=== PATIENT | male | born 1970 | race Caucasian/White ===

== ENCOUNTER 2020-05-13 12:02 | Emergency (ER) | payer OTHER, SELFPAY ==
--- NOTE | 2020-05-13 12:19 | ED.EXTPRO ---
HPI - Extremity Problem General Chief complaint: Extremity Problem,Nontraumatic Stated complaint: gout in foot Time Seen by Provider: 05/13/20 12:25 Source: patient and RN notes reviewed Mode of arrival: ambulatory Limitations: no limitations History of Present Illness HPI Narrative: 49 old male presents with concern for red, tender left foot at the base of the first digit. Reports history of gout. He does not take any preventative gout medicines. Denies any intervention for his pain. Denies any injury, trauma to the foot. MD Complaint: joint paint Related Data Allergies Allergy/AdvReac Type Severity Reaction Status Date / Time No Known Allergies Allergy Unverified 04/15/12 10:58 Review of Systems Review of Systems: Narrative: CONSTITUTIONAL: Denies malaise, chills, sweats, or fever. CARDIOVASCULAR: Denies chest pain, palpitations, or edema. SKIN: Reports redness, warmth of the base of the first digit of left foot MUSCULOSKELETAL: Reports pain, swelling of the base of the first digit of the left foot NEUROLOGIC: Denies numbness, weakness. All systems reviewed & are unremarkable except as noted in HPI and below PMFSH Comments Reviewed Exam Narrative: Exam Narrative: GENERAL: Well-appearing, well-nourished, and in no acute distress. HEAD: Normocephalic, atraumatic. EYES: PERRLA, conjunctivae clear, and EOMI. No nystagmus. ENT: Nares clear, turbinates pink, no rhinorrhea or epistaxis. Mucous membranes moist. TM pearly keys with sharp light reflex bilaterally; no tragal tenderness. Oropharynx without erythema or lesions. Tonsils not enlarged and without exudate. NECK: Supple. No lymphadenopathy. No jugular venous distension, thyromegaly, or carotid bruits. Carotids were easily palpable bilaterally. CHEST: No respiratory distress. Clear to auscultation. No bony deformities, no asymmetry. Speaks in full sentences. HEART: Regular rate and rhythm. No murmur heard. Normal peripheral pulses. ABDOMEN: Soft, nontender, nondistended, normal active bowel sounds, no palpable masses. EXTREMITIES: Normal range of motion. No edema. Normal strength and sensation. SKIN: Warm, dry, no rash. NEURO: Alert and oriented x3. No focal deficits. Cranial nerves II through XII grossly intact PSYCH: Normal mood and affect Course Course Emergency Course: Patient is aware of diagnosis, understands and agrees to treatment plan. Anticipatory guidance given. Patient agrees to follow-up as directed and is aware of reasons to seek care at the emergency department. Portions of this record may have been created with voice recognition software Vital Signs Vital signs: Vital Signs Temperature 97.7 F 05/13/20 12:24 Pulse Rate 85 05/13/20 12:24 Respiratory Rate 18 05/13/20 12:24 Blood Pressure 128/86 05/13/20 12:24 Pulse Oximetry 96 05/13/20 12:24 Temperature 97.7 F 05/13/20 12:24 Pulse Rate 85 05/13/20 12:24 Respiratory Rate 18 05/13/20 12:24 Blood Pressure 128/86 05/13/20 12:24 Pulse Oximetry 96 05/13/20 12:24 Reviewed. Pt has been instructed to follow up with his primary care provider within the next week regarding his elevated blood pressure today. MDM - Extremity (Nontraumatic) MDM Narrative Medical decision making narrative: Exam findings show no acute concerns or changes; patient is non-toxic appearing and is in no distress. Patient is appropriate for outpatient treatment and follow-up. Differential Diagnosis Differential diagnosis: Likely gout, cellulitis, superficial thrombophlebitis, lower extremity edema and deep vein thrombosis of lower extremity Critical Care Time Critical Care Time Critical Care Time: No Discharge Plan Discharge Clinical Impression: Gout Qualifiers: Gout site: toe Gout etiology: unspecified cause Chronicity: acute Laterality: left Qualified Code(s): M10.9 - Gout, unspecified Patient Disposition: Home, Self-Care Condition: Stable Instructions: Low Purine Diet (ED) Additiona
[2020-05-13 12:24] VITALS: BP 128/86; PULSE 85; RESP 18; TEMP 36.5; O2SAT 96
== END 2020-05-13 12:33 | disposition home or self-care (01) ==
PROVIDERS: Emergency Provider Nurse Practitioner; PCP Internal Medicine
DX: M10.9 Gout, unspecified (principal)
CPT/HCPCS: 99203; G0463

== ENCOUNTER 2020-09-08 08:02 | Emergency (ER) | payer OTHER, SELFPAY ==
[2020-09-08 08:10] VITALS: BP 147/84; PULSE 71; RESP 16; TEMP 36.6; O2SAT 97
--- NOTE | 2020-09-08 08:20 | ED.LOWEXIN ---
HPI - Extremity Injury (Lower) General Chief Complaint: Extremity Injury, Lower Stated Complaint: Gout Time Seen by Provider: 09/08/20 08:20 Source: patient and RN notes reviewed Limitations: no limitations History of Present Illness HPI Narrative: 49-year-old male who presents to [facility] care with complaints of pain to his left great toe which awoke him early this morning around 4am with severe pain, could not stand the sheet on his left toe. Patient states past history of gout flare in the past with last previous one in April of this year. Patient states that he has not seen his PCP in the past 6 years and never has been on daily maintenance therapy for gout. Patient admits to some alcohol use weekly of beer of 10-12 cans, no other alcohol use. Patient has noted swelling and mild redness to the 1st metatarsophalangeal joint of left foot. MD complaint: other (left great toe) Onset (ago): hour(s) (5) Injury: Left: toes (great toe left) Type of Injury: other (no known injury, gout flare) Place: home Severity: moderate Severity scale (1-10): 5 Relieving factors: NSAID Exacerbating factors: weight bearing and movement Context: other (no injury gout flare) Associated symptoms: swelling, able to partially bear weight and other (pain to left great toe joint) Other symptoms: none Treatments prior to arrival: NSAIDS Related Data Allergies Allergy/AdvReac Type Severity Reaction Status Date / Time No Known Allergies Allergy Verified 09/08/20 08:25 Review of Systems Review of Systems: Narrative: CONSTITUTIONAL: Denies fever, chills, or sweats. EYES: Denies visual changes, redness, or discharge. ENT: Denies rhinorrhea, congestion, sore throat, or otalgia. CARDIOVASCULAR: Denies chest pain, palpitations, or edema. RESPIRATORY: Denies cough or dyspnea. GASTROINTESTINAL: Denies abdominal pain, nausea, vomiting, or diarrhea. GENITOURINARY: Denies dysuria or hematuria. SKIN: Denies rash or itching. MUSCULOSKELETAL: Denies back pain,positive for 1st metatarsophalangeal joint pain left foot, or myalgia. NEUROLOGIC: Denies headache, numbness, or weakness. PSYCHIATRIC: Denies anxiety or depression. All systems reviewed & are unremarkable except as noted in HPI and below [facility] Past Medical History Medical History (Updated 09/08/20 @ 11:21 by Devika Rudolph NP) Esophageal tear repair Fracture of right hand Gout Family History Family History (Updated 09/08/20 @ 11:22 by Devika Rudolph NP) Father Heart disease Social History Social History (Updated 09/08/20 @ 11:21 by Devika Rudolph NP) Smoking status: Current some day smoker Tobacco type: cigarettes Alcohol intake: current Drinks per week: 12 Substance use: never Living arrangements: with family Gender identity (if verbalized by the patient): Male Comments At time of signature, agree with nursing past medical, surgical, social and family history. There is no relevant family history pertinent to the presenting complaint Exam Narrative: Exam Narrative: GENERAL: Well-appearing, well-nourished, and in no acute distress. HEAD: Normocephalic, atraumatic. EYES: PERRLA and EOMI. ENT: Nares clear, no rhinorrhea or epistaxis. Mucous membranes moist. NECK: Supple.no lymphadenopathy CHEST: Clear to auscultation. No respiratory distress.SAO2 97% on room air HEART: Regular rate and rhythm. No murmur heard. Normal peripheral pulses. ABDOMEN: Soft, nontender, nondistended, normal active bowel sounds. EXTREMITIES: Normal range of motion. No edema with exception to left 1st metatarsophalangeal joint left foot with noted redness and discomfort which increases with weight bearing SKIN: Warm, dry, no rash. NEURO: No focal deficits. Alert and oriented x3. Course Vital Signs Vital signs: Vital Signs Temperature 36.6 C 09/08/20 08:10 Pulse Rate 71 09/08/20 08:10 Respiratory Rate 16 09/08/20 08:10 Blood Pressure 147/84 H 09/08/20 08:10 Pulse Oximetry 97 09/08
[2020-09-08 08:51] VITALS: BP 136/91; PULSE 78
== END 2020-09-08 08:51 | disposition home or self-care (01) ==
PROVIDERS: Emergency Provider Registered Nurse; PCP Internal Medicine
DX: M10.072 Idiopathic gout, left ankle and foot (principal); F17.210 Nicotine dependence, cigarettes, uncomplicated
CPT/HCPCS: 99213; G0463

== ENCOUNTER 2024-09-19 17:53 | Emergency (ER) | payer OTHER, SELFPAY ==
[2024-09-19 18:05] VITALS: BP 155/86; PULSE 87; RESP 18; TEMP 37.3; O2SAT 96
--- NOTE | 2024-09-19 18:22 | ED_ITS ---
HPI - URI/Sore Throat General Chief Complaint: Upper Respiratory Infection Stated Complaint: Cough Time Seen by Provider: 09/19/24 18:10 Source: patient, RN notes reviewed and old records reviewed Mode of arrival: ambulatory Limitations: no limitations History of Present Illness HPI Narrative: 53 year old male who presents to [facility] care with complaints of cough with yellow productive phlegm noted, nasal congestion and drainage, no known fever but did feel feverish last night. Patient reports that he use to be a smoker and had pneumonia after COVID.Patient reports that he has had symptoms for about 1.5 weeks and has been taking Mucinex and Robitussin without resolution of his symptoms. MD elicited complaint: cough, rhinorrhea, nasal congestion and other (yellow phlegm) Able to tolerate fluids by mouth: Yes Treatments prior to arrival: other (Robitussin and Mucinex) Related Data Home Medications Medication Instructions Recorded Confirmed atorvastatin 10 mg tablet mg 09/19/24 famotidine 20 mg tablet mg 09/19/24 Allergies Allergy/AdvReac Type Severity Reaction Status Date / Time No Known Allergies Allergy Verified 09/19/24 18:07 Review of Systems Review of Systems: CONSTITUTIONAL:some malaise,no chills, sweats, did feel feverish last night EYES: Denies visual changes, redness, or discharge. ENT: Reports rhinorrhea, congestion, sinus pain, otalgia and sore throat. CARDIOVASCULAR: Denies chest pain, palpitations, or edema. RESPIRATORY: Reports cough.? Denies dyspnea. GASTROINTESTINAL: Denies abdominal pain, nausea, vomiting, diarrhea SKIN: Denies rash or itching. MUSCULOSKELETAL: Denies myalgia. NEUROLOGIC: Denies headache. All systems reviewed & are unremarkable except as noted in HPI and below PMFSH Past Medical History Medical History (Updated 09/19/24 @ 18:51 by Devika Rudolph NP) COVID-19 Esophageal tear repair Fracture of right hand Gout Family History Family History (Updated 09/08/20 @ 11:22 by Devika Rudolph NP) Father Heart disease Social History Social History (Updated 09/19/24 @ 18:52 by Devika Rudolph NP) Smoking status: Former smoker Tobacco type: cigarettes Additional smoking assessment comments: states quit 5 years ago after COVID Alcohol intake: current Drinks per week: 12 Substance use: never Living arrangements: with family Gender identity (if verbalized by the patient): Male Comments At time of signature, agree with nursing past medical, surgical, social and family history. There is no relevant family history pertinent to the presenting complaint Exam Narrative: GENERAL: Well-appearing, well-nourished, and in no acute distress. HEAD: Normocephalic EYES: PERRLA, conjunctivae clear ENT: Nares clear, turbinates edematous and erythematous, clear discharge. Mucous membranes moist. TM pearly keys with dull light reflex bilaterally; no tragal tenderness. Oropharynx erythematous without lesions. Tonsils not enlarged and without exudate, no drooling, no hoarseness, no trismus, uvula midline.post nasal drainage. NECK: Supple. No lymphadenopathy CHEST: occasional wheeze on auscultation, breath sounds equal.faint wheezing, rhonchi, rales, or stridor. No respiratory distress, speaks in full sentences.SAO2 96% on room air HEART: Regular rate and rhythm. No murmur heard. SKIN: Warm, dry, no rash. NEURO: Alert and oriented x3. PSYCH: Normal mood and affect Course Course Emergency Course: Patient is aware of diagnosis, understands and agrees to treatment plan.? Anticipatory guidance given.? Patient agrees to follow-up as directed and is aware of reasons to seek care at the emergency department. Portions of this record may have been created with voice recognition software Level of Care: Express Care Visit Vital Signs Vital signs: Vital Signs Temperature 37.3 C 09/19/24 18:05 Pulse Rate 87 09/19/24 18:05 Respiratory Rate 18 09/19/24 18:05 Blood Pressure 155/86 H 09/19/24 18:05 Pulse Oximetry 96 09/19/24 18:05 Oxygen Delivery Room Air 09/19/24 18:05 Temperature 37.3 C 09/19/24 18:05 Pulse Rate 87 09/19/24 18:05 Respiratory Rate 18 09/19/24 18:05 Blood Pressure 155/86 H 09/19/24 18:05 Pulse Oximetry 96 09/19/24 18:05 Oxygen Delivery Room Air 09/19/24 18:05 Reviewed MDM - URI/Sore Throat MDM Narrative Medical decision making narrative: Differential diagnosis considered: Mills virus, strep pharyngitis, allergic rhinitis, upper respiratory tract infection, sinusitis, rhinosinusitis, nasopharyngitis. viral pharyngitis, otitis media, otitis externa, pneumonia, bronchitis, viral cough syndrome, viral syndrome, and influenza.? Exam findings show no acute concerns or changes; patient is non-toxic appearing and is in no distress.? Patient is appropriate for outpatient treatment and follow-up. Differential Diagnosis Differential diagnosis: Likely upper respiratory infection, sinusitis, viral infection and other (acute cough) Medical Records Attestation: I reviewed the patient's medical records. Lab Data Attestation: I reviewed the patient's lab results. Critical Care Time Critical Care Time Critical Care Time: No Discharge Plan Discharge Clinical Impression: Acute cough Upper respiratory infection Qualifiers: URI type: unspecified URI Qualified Code(s): J06.9 - Acute upper respiratory infection, unspecified Patient Disposition: Home, Self-Care Condition: Stable Instructions: Antibiotic Form, Upper Respiratory Infection (ED) Additional Instructions: Increase fluids especially juices and water [id number] cough and cold medicine of your choice for your symptoms Zyrtec Claritin or Jocelyn daily Cough tablets as directed for cough--do not bite, chew or suck on--swallow whole Continue your inhaler/nebulizer as directed Steroids as directed--take with food heat to the face 20-30 minutes 4-6 times a day for pain Salt water gargles, throat lozenges or throat sprays as desired Antibiotic as directed--finished the medication If your symptoms persist, change or worsen significantly before you can contact your personal physician then please, without delay, go to the emergency department for further evaluation. Follow-up with PCP in 7-10 days or sooner if needed Follow up with PCP soon in regards to your blood pressure which is elevated above threshold for referral. Blood pressure above 120/80 may indicate pre- hypertension. 155/86 Prescriptions: New amoxicillin-pot clavulanate 875-125 mg tablet 1 tablet PO Q12H Qty: 20 0RF Rx Instructions: take with food recommend eating ACTIVA yogurt or probiotic while on this medication benzonatate 200 mg capsule 200 mg PO TID PRN (Reason: cough) Qty: 20 0RF prednisone 20 mg tablet 20 mg PO BID Qty: 10 0RF Rx Instructions: take with food No Action allopurinol 100 mg tablet 100 mg PO DAILY Qty: 30 0RF Rx Instructions: start medication once flare has resolved atorvastatin 10 mg tablet famotidine 20 mg tablet Follow-up/Referrals: PHYSICIAN NOT ON STAFF,NONSTAFF [Primary Care Provider] - Time of Disposition: 18:30 Quality Joyce Coma Scale Eyes: Open Verbal: Oriented and Alert Motor: Follows Commands Joyce Coma Total Score: 15
== END 2024-09-19 18:34 | disposition home or self-care (01) ==
PROVIDERS: Emergency Provider Registered Nurse
DX: R05.1 Acute cough (principal); J06.9 Acute upper respiratory infection, unspecified; M10.9 Gout, unspecified; Z86.16 Personal history of COVID-19; Z87.891 Personal history of nicotine dependence
CPT/HCPCS: 99213; G0463